=== PATIENT | female | born 1940 | race Caucasian/White ===

== ENCOUNTER 2023-09-10 22:58 | Inpatient (IN) | payer MEDICARE, OTHER ==
[~2023-09-10] VITALS: Ht 165.1 cm; Wt 53.5 kg
[2023-09-10 23:25] LABS: BASOPHILS # (AUTO) 0.1 K/UL (0.0-0.2); BASOPHILS % (AUTO) 1.3 % (0.0-2.0); EOSINOPHILS # (AUTO) 0.3 K/uL (0.0-0.7); EOSINOPHILS % (AUTO) 2.9 % (0.0-7.0); HEMOGLOBIN 12.3 g/dL (10.9-14.3); LYMPHOCYTES # (AUTO) 4.4 K/uL (0.8-4.8); LYMPHOCYTES % (AUTO) 49.3 % (20.5-51.5); MEAN CORPUSCULAR HEMOGLOBIN 31.2 uug (24.7-32.8); MEAN CORPUSCULAR HGB CONC 33 g/dL (32.3-35.6); MEAN CORPUSCULAR VOLUME 93.6 fL (75.5-95.3); MONOCYTES # (AUTO) 0.6 K/uL (0.1-1.30); MONOCYTES % (AUTO) 7.2 % (0.0-11.0); NEUTROPHILS # (AUTO) 3.5 K/uL (1.8-8.9); NEUTROPHILS % (AUTO) 39.3 % (38.5-71.5); PLATELET COUNT (AUTO) 254 K/uL (179-408); RED BLOOD CELL COUNT(AUTO) 3.95 MIL/uL (3.63-4.92); RED CELL DISTRIBUTION WIDTH 13.1 % (12.3-17.7)
[2023-09-10 23:32] LABS: DIFFERENTIAL COMMENT 1
[2023-09-10 23:38] LABS: CALCIUM 9.5 mg/dL (8.5-10.1); CARBON DIOXIDE 29 mmol/L (21-32); CHLORIDE 103 mmol/L (98-107); CREATININE 0.7 mg/dL (0.6-1.3); GLUCOSE 100 mg/dL (74-106); POTASSIUM 3.9 mmol/L (3.5-5.1); SODIUM SERUM 139 mmol/L (136-145); UREA NITROGEN, BLOOD 28 mg/dL (7-18)
[2023-09-10 23:53] LABS: ALANINE AMINOTRANSFERASE 34 U/L (14-59); ALBUMIN 3.3 g/dL (3.4-5.0); ALKALINE PHOSPHATASE 96 U/L (50-136); ASPARTATE AMINOTRANSFERASE 26 U/L (15-37); BILIRUBIN,TOTAL 0.2 mg/dL (0.2-1.0); NT-PRO BNP 59 pg/mL (0-125); TOTAL PROTEIN, SERUM 6.8 g/dL (6.4-8.2)
[2023-09-11] MEDS ORDERED: LEVO25TA2 PO (00:42)
[2023-09-11] MEDS ORDERED: PREG75CA PO (00:42)
[2023-09-11] MEDS ORDERED: CHOL10005 PO (00:42)
[2023-09-11] MEDS ORDERED: LINA72CA PO (00:42)
[2023-09-11] MEDS ORDERED: OXYB5TAB16 PO (00:42)
[2023-09-11] MEDS ORDERED: NORT10CA PO (00:42)
[2023-09-11] MEDS ORDERED: REMEDY ESSENTIAL ZINC PASTE 113 GM TP PRN (01:45)
[2023-09-11] MEDS ORDERED: ACETAMINOPHEN 325 MG TABLET PO PRN (01:45)
[2023-09-11] MEDS ORDERED: MAGNESIUM HYDROXIDE 30 ML LIQUID UDC PO PRN (01:45)
[2023-09-11] MEDS ORDERED: ENOXAPARIN SODIUM 40 MG/0.4 ML DISP.SYRIN SQ SCH (01:45)
[2023-09-11] MEDS ORDERED: ONDANSETRON 4 MG/2 ML VIAL IV PRN (01:45)
[2023-09-11 03:00] VITALS: BP 148/52; TEMP 97.7; O2SAT 99
[2023-09-11 05:02] VITALS: BP 140/61; TEMP 97.5; O2SAT 99
[2023-09-11] MEDS ORDERED: PANTOPRAZOLE SODIUM 40 MG TABLET.DR PO SCH (07:00)
[2023-09-11 08:00] VITALS: BP 125/60; TEMP 98.6; O2SAT 98
[2023-09-11] MEDS ORDERED: NORT25CA PO (09:42)
[2023-09-11] MEDS ORDERED: LINA145C PO (09:42)
[2023-09-11] MEDS ORDERED: LEVO50TA8 PO (09:42)
[2023-09-11] MEDS ORDERED: PREG75CA76 PO (09:42)
[2023-09-11] MEDS ORDERED: OXYB10TA30 PO (09:42)
[2023-09-11 11:27] VITALS: BP 114/56; TEMP 98; O2SAT 99
== END 2023-09-11 13:30 | DRG 392 ==
LOC: ER 23:02 → TELE3 09-11 00:26
PROVIDERS: ADMIT Student in an Organized Health Care Education/Training Program; ATTEND Nurse Practitioner Family
DX: K21.9 Gastro-esophageal reflux disease without esophagitis (principal); E44.1 Mild protein-calorie malnutrition; Z68.1 Body mass index [BMI] 19.9 or less, adult; E88.09 Other disorders of plasma-protein metabolism, not elsewhere classified; E03.9 Hypothyroidism, unspecified; K58.9 Irritable bowel syndrome, unspecified; F03.A0 Unspecified dementia, mild, without behavioral disturbance, psychotic disturbance, mood disturbance, and anxiety; Z90.710 Acquired absence of both cervix and uterus; Z79.890 Hormone replacement therapy; Z79.899 Other long term (current) drug therapy
CPT/HCPCS: 36415; 71045; 84484; 85025; 93005; A4606; A4663; G0378